=== PATIENT | male | born 1960 | race Caucasian/White ===

== ENCOUNTER → 2022-07-21 | Outpatient (RCR) | payer BC | END | disposition home or self-care (01) | LOC: COL.CR | DX: Z48.812 Encounter for surgical aftercare following surgery on the circulatory system (principal); Z95.1 Presence of aortocoronary bypass graft ==

== ENCOUNTER 2022-09-08 11:40 | Outpatient (RCR) | payer BC | END 2022-09-20 | disposition home or self-care (01) | LOC: COL.CR | DX: Z48.812 Encounter for surgical aftercare following surgery on the circulatory system (principal); Z95.5 Presence of coronary angioplasty implant and graft ==